=== PATIENT | female | born 1990 | race Caucasian/White ===

== ENCOUNTER 2020-02-22 11:07 | Outpatient (REF) | payer BC, SELFPAY | END 2020-02-22 11:08 | disposition home or self-care (01) | LOC: HO.HMGCLDS 11:07 | PROVIDERS: Visit Provider Internal Medicine | DX: Z20.828 Contact with and (suspected) exposure to other viral communicable diseases (principal) | CPT/HCPCS: C9803; U0003 ==

== ENCOUNTER 2021-07-21 18:37 | Emergency (ER) | payer OTHER, SELFPAY ==
--- NOTE | ~2021-07-21 | CT_ITS ---
EXAMINATION: CT ANGIOGRAM NECK CLINICAL INFORMATION: Neck pain. Severely twisted neck twisted in brake lathe machine. COMPARISON: CT cervical spine from 04/20/2014. TECHNIQUE: Initial noncontrast fence machine operator imaging of the neck was performed. Test bolus sequences followed by intravenous administration 70 mL of Omnipaque 350. Helical imaging was performed in the axial plane from the aortic arch to the skull base. The data was processed at the echocardiography radiology technologist's workstation for generation of MIP sequences. Angled MIPs and volume rendered reformatted images were also generated at an offline 3D workstation. Stenoses are assessed in accordance with NASCET criteria unless otherwise indicated. This CT examination was performed using dose optimization techniques as appropriate, variously including the following: *Automated exposure control. *Adjustment of mA and/or kV according to patient size (this includes techniques or standardized protocols for targeted exams where dose is matched to indication/reason for exam; i.e. extremities or head). *Use of iterative reconstruction technique. DLP: 584 mGy-cm FINDINGS: CT Neck: The thyroid gland and remaining cervical soft tissues are within normal limits. Mild mucosal thickening of the paranasal sinuses. Mild reversal the normal cervical lordosis centered on C6-C7. Otherwise, normal anatomic alignment. Moderate degenerative disc disease at C6-C7. Mild degenerative disc disease at C5-C6. Chronic mild expansion of the interspinous space at C6-C7 with partial calcification of the ligamentum flavum complex (similar to 2015). No demonstrated acute fracture or traumatic subluxation of the cervical spine. CT Upper Chest: The visualized lung apices and upper mediastinum are within normal limits. Neck CTA: Moderately motion degraded exam. Aortic Arch: Normal contour and caliber. Classic 3 vessel branching pattern of the aortic arch. Great Vessel Origins: No significant stenosis of the branch origins. Common Carotid Arteries: Normal opacification without focal stenosis or occlusion. Cervical Internal Carotid Arteries: Motion artifact blurs evaluation of the carotid bulbs. Otherwise, there is normal opacification without focal stenosis or occlusion. Cervical Right Vertebral Artery: Co-dominant. Normal opacification without focal stenosis or occlusion. Cervical Left Vertebral Artery: Co-dominant. Normal opacification without focal stenosis or occlusion. CT/CT angio neck IMPRESSION: 1. CTA of the neck without demonstrated blunt traumatic vascular injury. 2. No evidence of acute fracture or traumatic subluxation of the cervical spine. Degenerative spondyloarthropathy appears similar to exam from 2015.
[2021-07-21 19:17] VITALS: BMI 24.3
[2021-07-21 19:27] VITALS: BP 112/73; PULSE 74; RESP 17; TEMP 36.3; O2SAT 100
--- NOTE | 2021-07-21 19:31 | ED_ITS ---
HPI - Neck Pain/Injury General Chief Complaint: Neck Pain/Injury Stated Complaint: neck injury at work Time Seen by Provider: 07/21/21 19:29 Source: patient Mode of arrival: ambulatory Limitations: no limitations History of Present Illness HPI Narrative: at work today 3pm tona got pulled into brake lathe machine where she got pulled under then almost around it and her neck was whipped around and she felt a crack. She went to urgent care and waited 3 hours to be told to come to ED. She has no issues with her UE. She notes pain to scalp on left side where hair was pulled and L sided neck pain MD complaint: neck pain and neck injury Onset (ago): hour(s) (3pm today ) Place: work Radiation: left lateral Severity: moderate Quality: spasming and throbbing Duration: constant Relieving factors: immobilization Exacerbating factors: movement of neck Context: other (twisted by tona - pulled into brake lathe machine) Associated symptoms: headache (scalp at site where hair was pulled) Treatments prior to arrival: none Related Data Home Medications Medication Instructions Recorded Confirmed etonogestrel 68 mg subdermal SUBDERMAL 03/18/20 09/27/20 implant (Nexplanon) albuterol sulfate 90 mcg/actuation 2 puff INHALATION Q6H PRN 07/08/20 09/27/20 aerosol inhaler (ProAir HFA) loratadine 10 mg tablet (Allergy 10 mg PO DAILY 07/08/20 09/27/20 Relief (loratadine)) Previous Rx's Medication Instructions Recorded cyclobenzaprine 10 mg tablet 10 mg PO BEDTIME PRN 10 Days #20 03/18/20 tab ibuprofen 800 mg tablet 800 mg PO Q8H PRN 10 Days #30 tab 05/01/20 terbinafine HCl 250 mg tablet 250 mg PO DAILY #90 tab 09/27/20 Allergies Allergy/AdvReac Type Severity Reaction Status Date / Time tramadol [TRAMADOL] Allergy Unknown SICK Verified 07/21/21 19:21 Review of Systems Review of Systems: Constitutional : No Fever, No Chills ENT/Mouth : No Ear Pain, No Hoarseness, No sore throat Eyes: No Eye Pain, No Swelling, No Redness, No Foreign Body Cardiovascular : No Chest Pain, No SOB Respiratory : No Cough, No Dyspnea Gastrointestinal : No Nausea, No Vomiting, No Diarrhea, No abdominal Pain Genitourinary : No Dysuria, No Hematuria Musculoskeletal : no joint pain, No Myalgias, No Joint Swelling, pos neck pain Skin : No Skin lacerations, No rash Neuro : No Weakness, No Numbness, No Loss of Consciousness, No Dizziness, No Headache Psych : No Anxiety/Panic, No Depression Heme/Lymph: no easy bruising, no Lymphadenopathy Endocrine : No Polyuria, No Polydipsia All other systems reviewed and are negative [facility] Past Medical History Attestation statement: The following information was validated with the patient. Medical History Back pain Fall (on) (from) other stairs and steps, initial encounter Onychomycosis Surgical History No pertinent past surgical history Family History Family History (Updated 02/22/20 @ 13:08 by Marylu Frank Amber) Father Hypertension Mother Melanoma Maternal Aunt Melanoma Paternal Aunt Breast cancer Social History Social History Housing: Apartment Alcohol intake: current Alcohol intake frequency: a few times a week Patient Tobacco Use Status: Never used Tobacco Second Hand Smoke Exposure: Yes Patient : No service: No Current occupational status: employed Physical Exam Vital Signs: Vital Signs: Last Vital Signs Temp 97.4 F 07/21/21 19:27 Pulse 74 07/21/21 19:27 Resp 17 07/21/21 19:27 BP 112/73 07/21/21 19:27 Pulse Ox 100 07/21/21 19:27 BMI result Body Mass Index 24.3 Appearance: Alert. Oriented X3. No acute distress. Eyes: Pupils equal, round and reactive to light. ENT: Pharynx normal. Neck: in soft collar. no midline ttp no hematoma seen no bruit heard ttp along left lateral mass CVS: Normal heart rate and rhythm. Pulses normal. Respiratory: No respiratory distress. Breath sounds normal. Abdomen: Soft and non-tender. Skin: Skin warm and dry. Normal skin color. Normal skin turgor. Extremities: No lower extremity edema. Neuro: Oriented X 3. No motor deficit. No sensory deficit. bilateral UE NV intact 5/5 strength SILT throughout Course Course Course Narrative: signed out to Dr. Herrera pending labs and imaging. MDM - Neck Pain/Injury MDM Narrative Medical decision making narrative: 31 yo female no sig PMH here with c/o twisting injury of neck with pain after ponytail being pulled into brake lathe machine at work. At this time given the mechanism and twisting injury will obtain CTA of neck to evaluate the bones as well as angio to r/o dissection. PO valium for spasm. She is UE NV intact. Dispo per results and findings. Lab Data Result diagrams: 07/21/21 20:03 07/21/21 20:03 Labs: Lab Results 07/21/21 Range/Units 20:03 WBC 7.4 (4.8-10.8) X10*3/uL RBC 4.44 (4.20-5.50) X10*6/uL Hgb 13.9 (12.0-16.0) g/dl Hct 40.0 (37.0-47.0) % MCV 90.1 (80.0-98.0) fL MCH 31.3 (27.0-33.0) pg MCHC 34.8 (31.0-35.0) g/dl RDW 12.2 (11.0-16.0) % Plt Count 231 (160-400) X10*3/uL MPV 9.6 (9.4-12.3) fL Immature Gran % (Auto) 0.3 (0.0-0.4) % Neut % (Auto) 64.4 (45-73) % Lymph % (Auto) 27.0 (20-40) % [place] % (Auto) 7.2 (2-11) % Eos % (Auto) 0.8 (0-4) % Baso % (Auto) 0.3 (0-2) % Lymph # (Auto) 2.0 (1.2-4.9) X10*3/uL [place] # (Auto) 0.5 (0.1-1.2) X10*3/uL Eos # (Auto) 0.1 (0.0-0.4) X10*3/uL Baso # (Auto) 0.0 (0.0-0.2) X10*3/uL Abs Immat Gran (auto) 0.02 (0.00-0.03) X10*3/uL Absolute Neuts (auto) 4.8 (2.0-8.3) x10*3/uL Absolute Nucleated RBC 0.000 (0.0-0.012) X10*3/uL Nucleated RBC % (auto) 0.0 (0.0-0.2) /100WBC Discharge Plan Discharge Clinical Impression: Whiplash injury to neck Qualifiers: Encounter type: initial encounter Qualified Code(s): S13.4XXA - Sprain of ligaments of cervical spine, initial encounter Patient Disposition: Still a Patient Prescriptions: No Action Nexplanon 68 mg implant subdermal 0RF cyclobenzaprine 10 mg tablet 10 mg PO BEDTIME PRN (Reason: muscle spasm) 10 Days Qty: 20 0RF ibuprofen 800 mg tablet 800 mg PO Q8H PRN (Reason: pain) 10 Days Qty: 30 0RF terbinafine HCl 250 mg tablet 250 mg PO DAILY Qty: 90 1RF loratadine [Allergy Relief (loratadine)] 10 mg tablet 10 mg PO DAILY 0RF albuterol sulfate [ProAir HFA] 90 mcg/actuation HFA aerosol inhaler 2 puff inhalation Q6H PRN0RF
[2021-07-21] MEDS: diazePAM 2 MG TABLET 5 MG PO (19:53)
[2021-07-21 20:08] LABS: MANUAL DIFF FLAG NO
[2021-07-21 20:10] LABS: Basophils Percent Auto 0.3 % (0-2); Eosinophils Absolute Auto 0.1 X10*3/uL (0.0-0.4); Eosinophils Percent Auto 0.8 % (0-4); Hemoglobin 13.9 g/dl (12.0-16.0); Imm Gran Abs Auto 0.02 X10*3/uL (0.00-0.03); Imm Gran Pct Auto 0.3 % (0.0-0.4); Mean Corpuscular HGB Conc 34.8 g/dl (31.0-35.0); Mean Corpuscular Hemoglobin 31.3 pg (27.0-33.0); Mean Corpuscular Volume 90.1 fL (80.0-98.0); Mean Platelet Volume 9.6 fL (9.4-12.3); Monocytes Absolute Auto 0.5 X10*3/uL (0.1-1.2); Monocytes Percent Auto 7.2 % (2-11); Neutrophils Absolute Auto 4.8 x10*3/uL (2.0-8.3); Neutrophils Percent Auto 64.4 % (45-73); Platelet Count 231 X10*3/uL (160-400); Red Blood Count 4.44 X10*6/uL (4.20-5.50); Red Cell Distribution Width 12.2 % (11.0-16.0); White Blood Count 7.4 X10*3/uL (4.8-10.8)
[2021-07-21 20:16] LABS: Prothrombin Time 11.6 SEC (9.9-13.0)
[2021-07-21 20:24] LABS: Anion Gap 10 (12-20); Blood Urea Nitrogen 13 mg/dL (9-16); Calcium 9.4 mg/dL (8.4-10.2); Carbon Dioxide 27 mmol/L (22-29); Chloride 104 mmol/L (96-108); Creatinine Clr Calc Pharmacy 102.4; Estimated Glomerular Filt Rate > 60; Glucose Random 115 mg/dL (60-115); Potassium 3.4 mmol/L (3.3-5.1); Sodium 138 mmol/L (135-145)
[2021-07-21 20:32] LABS: HCG Quantitative < 2 mIU/mL
[2021-07-21] MEDS: iohexoL 350 MG/ML 100 ML INFUS..BTL IV (22:10)
[2021-07-21] MEDS: 0.9 % Sodium Chloride 1,000 ML 999 ML IV (22:26)
[2021-07-21 22:27] VITALS: BP 98/60; PULSE 62; RESP 18; O2SAT 98
[2021-07-21 23:22] VITALS: BP 102/66; PULSE 57; RESP 16; TEMP 36.6; O2SAT 98
[2021-07-21] MEDS: Lidocaine 4 % Patch ADH..PATCH 1 PATCH TRANSDERMA (23:40)
[2021-07-21] MEDS: Ketorolac Tromethamine 15 MG/ML VIAL IM (23:41)
[2021-07-21] MEDS: Acetaminophen 325 MG TABLET 975 MG PO (23:42)
== END 2021-07-21 23:57 | disposition home or self-care (01) ==
PROVIDERS: Emergency Medicine; Emergency Provider Student in an Organized Health Care Education/Training Program; PCP Internal Medicine
DX: S13.4XXA Sprain of ligaments of cervical spine, initial encounter (principal); M54.2 Cervicalgia; X58.XXXA Exposure to other specified factors, initial encounter; Y93.9 Activity, unspecified; Y92.9 Unspecified place or not applicable; Y99.0 Civilian activity done for income or pay; Z79.899 Other long term (current) drug therapy
CPT/HCPCS: 36415; 70498; 80048; 84702; 85025; 85610; 96360; 96372; 99284; J1885; Q9967

== ENCOUNTER 2024-04-06 13:53 | Outpatient (AMB) | payer OTHER, SELFPAY ==
--- NOTE | 2024-04-06 13:54 | A.OFFPC_ITS ---
Vital Signs 04/06/24 13:56 Height 5 ft 6.54 in Weight 176 lb 8 oz BMI 28.0 BP 108/62 Blood Pressure Location Lt brachial Position Sitting Pulse 76 Pulse Source Pulse Oximeter Pulse Oximetry (%) 98 Oxygen Delivery Method Room Air Intake Visit Reasons: establish care Intake Note: pt needs refills Assembly Manager Required: No Accompanied by: Self / Same As Patient Allergies tramadol [TRAMADOL] Allergy (Unknown, Verified 04/06/24 13:55) SICK Medication List - Last Reconciled 04/06/24 by Jennifer Gill MD albuterol sulfate 90 mcg/actuation (ProAir HFA) 2 puffs inhalation Q6H PRN etonogestrel (Nexplanon) subdermal ibuprofen 800 mg PO Q8H PRN 10 days terbinafine HCl 250 mg PO DAILY Tobacco use date assessed: 04/06/24 Dental Screening Dental Screen Date: 04/06/24 Did you have a dental visit in the last 12 months?: Yes Did you have a dental problem in the last 6 months where you did not have access to dental care?: No Was dental information given to patient?: Patient has dentist HPI establish care HPI Details The patient is a 34-year-old female presenting with a history of cervical neck injury resulting from an accident in 2021, where her neck was pulled by machinery. She continues to experience occasional pain and limited motion in her neck but reports that the condition has shown some improvement over time. Previous imaging studies, such as CT scans, indicated that osseous structures were normal. Blood work conducted prior to this visit indicated mild hypokalemia and mild hyperglycemia, though the latter was deemed insignificant as the testing occurred in the afternoon. In past medical history, she experienced adverse reactions to Tramadol resulting in cessation of the medication. Currently, there is no new pharmaceutical intolerance. The patient experiences occasional dyspnea primarily during physical exertion for which she intermittently uses an inhaler. She has an ongoing issue with onychomycosis noted particularly in the foot and nail regions. The patient reports that the condition has not fully resolved and persists with reduced bonita rity. Previously, a medication was prescribed for this condition, which the patient partially used. A request for a new prescription was made due to medication loss during a move. She reported social alcohol consumption on weekends, typically consuming a few beers or glasses of wine during social gatherings, equating to approximately four occasions per month. The patient clarified that she does not use tobacco or recreational drugs. Family history is significant for breast cancer in an aunt and melanoma concerning her mother and another aunt. The patient receives ongoing periodic health maintenance including COVID-19 vaccination but has not recently received an influenza vaccine. She maintains hydration and activity levels but noted recent lapses in dietary health. [facility] Medical History (Updated 04/06/24 @ 14:27 by Jennifer Gill MD) Fall (on) (from) other stairs and steps, initial encounter Skin infection COVID-19 virus infection Back pain Onychomycosis Surgical History No pertinent past surgical history Family History Father Hypertension Mother Melanoma Maternal Aunt Melanoma Paternal Aunt Breast cancer Social History (Updated 04/06/24 @ 14:29 by Jennifer Gill MD) Housing: Apartment Alcohol intake: current Alcohol intake frequency: a few times a week Comment: once a week 4 beers Patient Tobacco Use Status: Never used Tobacco Second Hand Smoke Exposure: Yes service: No Current occupational status: employed Questionnaire PHQ-9 Over the last 2 weeks, how often have you been bothered by any of the following problems? 1. Little interest or pleasure in doing things: several days 2. Feeling down, depressed, or hopeless: not at all 3. Trouble falling or staying asleep, or sleeping too much: several days 4. Feeling tired or having little energy: not at all 5. Poor appetite or overeating: not at all 6. Feeling bad about yourself - or that you are a failure or have let yourself or your family down: not at all 7. Trouble concentrating on things, such as reading the newspaper or watching television: not at all 8. Moving or speaking so slowly that other people could have noticed. Or the opposite - being so fidgety or restless that you have been moving around a lot more than usual: not at all 9. Thoughts that you would be better off or of hurting yourself in some way: not at all Total score: 2 Depression Screening Interpretation: Negative Depression Screening Done: Yes Source: Developed by Drs. Antelmo Clarke, Curtis Givens and colleagues, with an educational jessica from [employer]. Thrive Questionnaire Date Thrive assessed: 04/06/24 I am a: Patient What is your living situation today?: I have a steady place to live Within the past 12 months, did the food you bought not last and you didn't have the money to get more?: Never true Within the past 12 months, did you worry whether your food would run out before you got money to buy more?: Never true Do you have trouble paying for medicines?: No Do you have trouble getting transportation to medical appointments?: No Do you have trouble paying your heating and electricity bill?: No Do you have trouble taking care of your child, family member or friend?: No Do you have trouble with day-to-day activities such as bathing, preparing meals, shopping, managing finances, etc.?: No Are you currently unemployed and looking for a job?: No Are you interested in more education?: No Please select the resources that you would like help with: None Currently or been in a relationship where the following occur: No concerns reported THRIVE Score: 0 AUDIT C Alcohol Use Questionnaire (AUDIT-C) 1. How often do you have a drink containing alcohol?: Never Total Score: 0 RICHARD-7 AMB Questionnaire RICHARD-7 Date RICHARD - 7 assessed: 04/06/24 Feeling nervous, anxious, or on edge: 0 = Not at all Not being able to stop or control worryin = Not at all Worrying too much about different things: 0 = Not at all Trouble relaxin = Not at all Being so restless that it is hard to sit still: 0 = Not at all Becoming easily annoyed or irritable: 0 = Not at all Feeling afraid as if something awful might happen: 0 = Not at all Total RICHARD-7 score (0-4 normal; 5-9 mild; 10-14 moderate; 15-21 severe): 0 Source: Developed by Drs. Antelmo Clarke, Curtis Givens and colleagues, with an educational jessica from [employer]. Physical exam (Primary Care) Vital Signs: Last Vital Signs Pulse 76 04/06/24 13:56 BP 108/62 04/06/24 13:56 Pulse Ox 98 04/06/24 13:56 Oxygen Delivery Method Room Air 04/06/24 13:56 BMI result Body Mass Index 28.0 Tobacco/Smoking Status: Tobacco use Status Tobacco use date assessed 04/06/24 04/06/24 14:05 Patient Tobacco Use Status Never used Tobacco 04/06/24 14:29 PHQ-9: PHQ-9 Score PHQ-9: Total score 2 04/06/24 14:29 Depression Screening Interpretation: Negative Thrive Assessment: Date of Thrive Assessment Date Thrive assessed 04/06/24 04/06/24 14:05 Currently or been in a relationship where the following occur: No concerns reported Coding Level of Care Code New Pt Level 4 (28753) Diagnoses Onychomycosis B35.1 Exercise-induced asthma J45.990 Assessment & Plan Assessment & Plan (1) Onychomycosis: Code(s): B35.1 - Tinea unguium Category: Medical (2) Exercise-induced asthma: Code(s): J45.990 - Exercise induced bronchospasm Category: Medical Plan - Continue management of cervical neck injury sequelae with monitoring for any exacerbation of symptoms. - Monitor serum potassium and glucose levels in routine follow-ups as precautionary measures due to previous findings of mild hypokalemia and hyperglycemia. - Avoid Tramadol due to history of adverse reaction; continue to explore alternative analgesics if needed. - Advise on inhaler use as needed to manage dyspnea associated with physical activity; continue monitoring for frequency and intensity. - Prescribe antifungal therapy for onychomycosis, considering prior partial treatment and ongoing symptoms. - Discuss and reinforce moderation in alcohol consumption in line with health guidelines and patient?s current social habits. - Encourage completion of annual health screenings, addressing vaccinations, and addressing family cancer history for personalized care. - Continue encouragement of a balanced diet and regular physical activity to optimize overall health. Orders: Orders Complete Blood Count Auto Diff 4 Weeks B35.1 - Tinea unguium Thyroid Stimulating Hormone 4 Weeks B35.1 - Tinea unguium Vitamin B12 and Folate 4 Weeks B35.1 - Tinea unguium Vitamin D 25-OH Total 4 Weeks B35.1 - Tinea unguium Comprehensive Met. Panel 4 Weeks B35.1 - Tinea unguium Free T4 (Free Thyroxine) 4 Weeks B35.1 - Tinea unguium Lipid Panel 4 Weeks B35.1 - Tinea unguium, E78.00 - Pure hypercholesterolemia, unspecified Medications: Refilled terbinafine HCl 250 mg PO DAILY 90 tabs 1RF B35.1 - Tinea unguium
[2024-04-06 13:56] VITALS: BP 108/62; PULSE 76; O2SAT 98; BMI 28.0
== END 2024-04-06 14:37 | disposition home or self-care (01) ==
PROVIDERS: PCP Internal Medicine; Visit Provider Internal Medicine
DX: B35.1 Tinea unguium (principal); J45.990 Exercise induced bronchospasm

== ENCOUNTER → 2024-04-06 13:53 | Outpatient (BNVA) | payer OTHER, SELFPAY | PROVIDERS: PCP Internal Medicine; Visit Provider Internal Medicine ==

== ENCOUNTER 2024-06-03 10:39 | Outpatient (REF) | payer OTHER, SELFPAY ==
[2024-06-03 10:51] LABS: MANUAL DIFF FLAG NO
[2024-06-03 11:11] LABS: Basophils Percent Auto 0.4 % (0-2); Eosinophils Absolute Auto 0.1 X10*3/uL (0.0-0.4); Eosinophils Percent Auto 1.1 % (0-4); Hematocrit 42.3 % (37.0-47.0); Hemoglobin 14.4 g/dl (12.0-16.0); Imm Gran Abs Auto 0.02 X10*3/uL (0.00-0.03); Imm Gran Pct Auto 0.4 % (0.0-0.4); Lymphocytes Absolute Auto 1.4 X10*3/uL (1.2-4.9); Lymphocytes Percent Auto 25.4 % (20-40); Mean Corpuscular Hemoglobin 30.9 pg (27.0-33.0); Mean Corpuscular Volume 90.8 fL (80.0-98.0); Mean Platelet Volume 9.2 fL (9.4-12.3); Monocytes Absolute Auto 0.4 X10*3/uL (0.1-1.2); Monocytes Percent Auto 6.9 % (2-11); Neutrophils Absolute Auto 3.6 x10*3/uL (2.0-8.3); Neutrophils Percent Auto 65.8 % (45-73); Platelet Count 237 X10*3/uL (160-400); Red Blood Count 4.66 X10*6/uL (4.20-5.50); Red Cell Distribution Width 12.2 % (11.0-16.0); White Blood Count 5.5 X10*3/uL (4.8-10.8)
[2024-06-03 12:06] LABS: Alanine Aminotransferase 15 U/L (0-31); Albumin Level 4.3 g/dL (3.5-5.0); Alkaline Phosphatase 74 U/L (39-117); Anion Gap 11 (12-20); Aspartate Amino Transferase 15 U/L (5-31); Bilirubin Total 0.3 mg/dL (0.0-1.0); Blood Urea Nitrogen 18 mg/dL (9-16); Carbon Dioxide 26 mmol/L (22-29); Chloride 107 mmol/L (96-108); Cholesterol 158 mg/dL (<200); Estimated Glomerular Filt Rate > 60; Glucose Random 99 mg/dL (60-115); HDL Cholesterol 53 mg/dL (>40); LDL Cholesterol Calculated 86 mg/dL (<100); Potassium 4.5 mmol/L (3.3-5.1); Sodium 139 mmol/L (135-145); Total Protein 7.7 g/dL (6.5-8.0); Triglycerides 97 mg/dL (<150)
[2024-06-03 12:29] LABS: Thyroid Stimulating Hormone 0.66 uIU/mL (0.32-4.0); Vitamin D 25-OH Total 15.6 ng/mL (>30)
[2024-06-03 12:31] LABS: Folate 9.7 ng/mL (> or = 4.0); Vitamin B12 316 pg/mL (200-900)
== END 2024-06-03 10:40 | disposition home or self-care (01) ==
LOC: HO.LAB 10:39
PROVIDERS: PCP Internal Medicine; Visit Provider Internal Medicine
DX: B35.1 Tinea unguium (principal); E78.00 Pure hypercholesterolemia, unspecified; Z13.228 Encounter for screening for other metabolic disorders
CPT/HCPCS: 36415; 80053; 80061; 82306; 82607; 82746; 84439; 84443; 85025

== ENCOUNTER 2024-06-05 16:01 | Outpatient (AMB) | payer OTHER, SELFPAY ==
[2024-06-05 16:16] VITALS: BP 98/64; PULSE 72; TEMP 36.2; O2SAT 98; BMI 28.5
--- NOTE | 2024-06-05 16:16 | A.OFFPC_ITS ---
Vital Signs 06/05/24 16:16 Height 5 ft 6.54 in Weight 179 lb 6 oz BMI 28.5 BP 98/64 Blood Pressure Location Lt brachial Position Sitting Pulse 72 Pulse Source Pulse Oximeter Temp 97.1 F Temp Source Temporal Artery Scan Pulse Oximetry (%) 98 Oxygen Delivery Method Room Air Intake Visit Reasons: Annual Exam Intake Note: Patient is here today for a physical. Invisible Braces Orthodontist Required: No Accompanied by: Self / Same As Patient Allergies tramadol [TRAMADOL] Allergy (Unknown, Verified 06/05/24 16:17) SICK Medication List - Last Reconciled 06/05/24 by Jennifer Gill MD albuterol sulfate 90 mcg/actuation (ProAir HFA) 2 puffs inhalation Q6H PRN etonogestrel (Nexplanon) subdermal ibuprofen 800 mg PO Q8H PRN 10 days terbinafine HCl 250 mg PO DAILY Tobacco use date assessed: 04/06/24 Dental Screening Dental Screen Date: 04/06/24 [facility] Medical History (Updated 06/05/24 @ 16:31 by Jennifer Gill MD) Fall (on) (from) other stairs and steps, initial encounter Skin infection COVID-19 virus infection Back pain Onychomycosis Surgical History No pertinent past surgical history Family History (Updated 06/05/24 @ 16:32 by Jennifer Gill MD) Father Hypertension Mother Melanoma Maternal Aunt Melanoma Paternal Aunt Breast cancer Paternal Grandmother Breast cancer Social History Housing: Apartment Alcohol intake: current Alcohol intake frequency: a few times a week Comment: once a week 4 beers Patient Tobacco Use Status: Never used Tobacco Second Hand Smoke Exposure: Yes service: No Current occupational status: employed Cognitive needs: No Hearing needs: No Vision needs: No Questionnaire PHQ-9 Over the last 2 weeks, how often have you been bothered by any of the following problems? 1. Little interest or pleasure in doing things: several days 2. Feeling down, depressed, or hopeless: not at all 3. Trouble falling or staying asleep, or sleeping too much: several days 4. Feeling tired or having little energy: not at all 5. Poor appetite or overeating: not at all 6. Feeling bad about yourself - or that you are a failure or have let yourself or your family down: not at all 7. Trouble concentrating on things, such as reading the newspaper or watching television: not at all 8. Moving or speaking so slowly that other people could have noticed. Or the opposite - being so fidgety or restless that you have been moving around a lot more than usual: not at all 9. Thoughts that you would be better off or of hurting yourself in some way: not at all Total score: 2 Depression Screening Interpretation: Negative Depression Screening Done: Yes 33820 - PHQ-9 Billing: Yes Source: Developed by Drs. Antelmo Clarke, Hue Gonzalez, Curtis Grande and colleagues, with an educational jessica from [employer]. Thrive Questionnaire Date Thrive assessed: 06/05/24 I am a: Patient What is your living situation today?: I have a steady place to live Within the past 12 months, did the food you bought not last and you didn't have the money to get more?: Never true Within the past 12 months, did you worry whether your food would run out before you got money to buy more?: Never true Do you have trouble paying for medicines?: No Do you have trouble getting transportation to medical appointments?: No Do you have trouble paying your heating and electricity bill?: No Do you have trouble taking care of your child, family member or friend?: No Do you have trouble with day-to-day activities such as bathing, preparing meals, shopping, managing finances, etc.?: No Are you currently unemployed and looking for a job?: No Are you interested in more education?: No Please select the resources that you would like help with: None Currently or been in a relationship where the following occur: No concerns reported THRIVE Score: 0 AUDIT C Alcohol Use Questionnaire (AUDIT-C) 1. How often do you have a drink containing alcohol?: Never 3. How often do you have six or more drinks on one occasion?: Never Total Score: 0 RICHARD-7 AMB Questionnaire RICHARD-7 Date RICHARD - 7 assessed: 06/05/24 Feeling nervous, anxious, or on edge: 0 = Not at all Not being able to stop or control worryin = Not at all Worrying too much about different things: 0 = Not at all Trouble relaxin = Not at all Being so restless that it is hard to sit still: 0 = Not at all Becoming easily annoyed or irritable: 0 = Not at all Feeling afraid as if something awful might happen: 0 = Not at all Total RICHARD-7 score (0-4 normal; 5-9 mild; 10-14 moderate; 15-21 severe): 0 Source: Developed by Drs. Antelmo Clarke, Hue Gonzalez, Curtis Grande and colleagues, with an educational jessiac from [employer]. RICHARD-7 Assessment Billing RICHARD-7 Assessment Tool: RICHARD-7 Assessment 95804 Review of Systems Const Denies poor appetite and Denies weakness Eyes Denies no additional complaints ENT Reports Normal hearing present, Denies dizziness, Denies nasal congestion, Denies tinnitus and Denies sore throat Card Denies chest pain, Denies syncope, Denies rapid heart rate and Denies dyspnea Resp Denies cough and Denies dyspnea GI Denies change in stool character, Reports constipation, Denies diarrhea, Denies nausea and Denies vomiting Denies urinary frequency, Denies difficulty voiding and Denies dysuria Neuro Reports Normal hearing present, Denies confusion, Denies dizziness, Denies syncope and Denies weakness Psych Denies confusion Physical exam (Primary Care) Vital Signs: Last Vital Signs Temp 97.1 F 06/05/24 16:16 Pulse 72 06/05/24 16:16 BP 98/64 06/05/24 16:16 Pulse Ox 98 06/05/24 16:16 Oxygen Delivery Method Room Air 06/05/24 16:16 BMI result Body Mass Index 28.5 Tobacco/Smoking Status: Tobacco use Status Tobacco use date assessed 04/06/24 06/05/24 16:18 Patient Tobacco Use Status Never used Tobacco 06/05/24 16:18 PHQ-9: PHQ-9 Score PHQ-9: Total score 2 06/05/24 16:25 Depression Screening Interpretation: Negative Thrive Assessment: Date of Thrive Assessment Date Thrive assessed 06/05/24 06/05/24 16:18 Currently or been in a relationship where the following occur: No concerns reported Const General: No confusion Orientation/consciousness: No confusion HENMT Head: Yes normocephalic Ears: external ears normal and TM's normal bilaterally Face and sinus: Yes normal facial exam Mouth: moist mucous membranes Throat: Yes tonsils normal Eyes Conjunctivae: conjunctivae normal Pupils: Equal, round and reactive pupils present and Pupil accommodation reflex normal Direct Ophthalmoscopy: normal light reflex Neck Neck: No lymphadenopathy Thyroid: Thyroid normal Chest Chest palpation & inspection: normal inspection of the chest Resp Effort & Inspection: normal respiratory effort and no audible wheezes Auscultation: clear to auscultation bilaterally, no crackles, no wheezes and lung sounds not diminished Cardio Rate: regular rate Rhythm: regular rhythm Peripheral pulses: radial pulses present and dorsalis pedis present GI Palpation (GI): no masses Auscultation: normal bowel sounds and normoactive bowel sounds Rectal Exam - Female: deferred Skin General skin exam: no rashes or lesions noted Rashes: no rashes Neuro General: No confusion Cranial nerves: Yes Equal, round and reactive pupils present and Yes Normal hearing present Cognition (Neuro): normal cognition Gait exam (Neuro): Normal gait present Motor exam (neuro): 5/5 motor strength present throughout Deep tendon reflexes (DTR's): Right brachioradialis reflex intensity grade: 2+, Left brachioradialis reflex intensity grade: 2+, Right patellar reflex intensity grade: 2+ and Left patellar reflex intensity grade: 2+ Extrem General: No edema Office Procedures Flu Questionnaire Does the patient have a severe egg allergy?: No Immunizations Fluarix Triv [id number] (PF) 45 mcg (15 mcg x 3)/0.5 mL IM syringe Performing Provider: Jennifer Gill MD [facility] Documented (not given) by: NICKO Zheng on 06/05/24 16:24 Reason Not Given: Patient Refused Coding Level of Care Code Est Pt Prev Care 18-39y(24762) Diagnoses Annual physical exam Z00.00 Exercise-induced asthma J45.990 Vitamin D deficiency E55.9 Migraine G43.909 Additional Codes RICHARD-7 Assessment Billing - RICHARD-7 Assessment Tool: RICHARD-7 Assessment 59740 ([id number]) PHQ-9 - 18797 - PHQ-9 Billing: Yes ([id number]) Assessment & Plan Assessment & Plan (1) Annual physical exam: Code(s): Z00.00 - Encounter for general adult medical examination without abnormal findings Category: Medical Plan: Patient is advised to eat healthy, keep well hydrated, keep active and have adequate sleep. (2) Exercise-induced asthma: Code(s): J45.990 - Exercise induced bronchospasm Category: Medical Plan: Continue with albuterol inhaler as needed (3) Vitamin D deficiency: Code(s): E55.9 - Vitamin D deficiency, unspecified Category: Medical Plan: Vitamin-D 1000 units to 2000 units once a day (4) Migraine: Code(s): G43.909 - Migraine, unspecified, not intractable, without status migrainosus Category: Medical Plan History of Present Illness The patient is a 34-year-old female presenting for a physical exam and management of migraines. She reports frequent and severe migraine headaches that negatively impact her daily life, causing significant symptoms such as nausea and vomiting. Management through [id number] medications like ibuprofen has proven inadequate. The patient also has a history of exercise-induced asthma, managed with an albuterol inhaler, yet reports no recent symptoms of asthma. Her low serum vitamin D was noted during a previous visit, and supplementation was advised to manage this deficiency. Health Maintenance - Vitamin D supplementation recommended: 1000 to 2000 units daily - Advised on lifestyle changes such as reducing alcohol intake to minimize health risks - Discussed maintaining hydration and a healthy diet with low fast food intake Social History - Consumes alcohol occasionally, typically three to four drinks on weekends - No history of tobacco use or recreational drug use - Expresses efforts to maintain a healthy diet and avoid fast food Review of Systems - Neurological: Reports migraines with nausea and vomiting. - Respiratory: Denies shortness of breath, chest pain, or waking up short of breath. - Gastrointestinal: Denies dysphagia, abdominal pain, or irregular bowel movements. - Genitourinary: Denies dysuria or hematuria. - Sleep: Reports good sleep habits and overall hydration. Physical Exam General: Cooperative, overweight, comfortable, no acute distress and well developed Orientation: Patient oriented x3 Limitations: No limitations Head: Normal to inspection Ears: Hearing grossly normal bilaterally Nose: Normal external nose present Face and sinus: Normal facial exam Eyes: Appearance normal, both eyes and all related structures Neck: Normal visual inspection and Yes full ROM Respiratory: Normal respiratory effort and able to speak in complete sentences. Clear to auscultation bilaterally Cardiovascular: Regular rate and rhythm. Normal S1 and S2 GI: Normal to inspection. Soft to palpation and nontender Skin: No rashes or lesions noted Neuro: Patient oriented x3 Extremities: Normal to inspection Results - Labs: June 2024 lab results indicate vitamin D deficiency (15.6 ng/mL), with normal blood count, platelets, white blood cells, renal function, blood sugar, liver function tests, cholesterol, and thyroid levels. Plan For the management of migraine headaches, I prescribed Imitrex sumatriptan) for use at the onset of headache episodes. We discussed the continuation of vitamin D supplementation due to her deficiency and emphasized the importance of lifestyle modifications to manage her overall health, including dietary changes and moderated alcohol consumption. Management of exercise-induced asthma with her current albuterol inhaler was reinforced, and no adjustment was deemed necessary at this time. Patient was informed and verbally consented to the use of an ambient scribe for clinic note documentation during this visit. Discussion Notes During our discussion, I explained the use of Imitrex (sumatriptan) for her migraine management, noting its role in aborting headaches if taken at the onset of symptoms. We reviewed the risks and benefits associated with this treatment and emphasized the need to monitor its efficacy closely. We reiterated the importance of maintaining adequate vitamin D levels through supplementation. The discussion also involved suggestions for dietary and lifestyle changes to improve her general health and mitigate migraine triggers. We concluded that follow-ups would be required to assess her response to new medications. Patient Instructions - Start Imitrex (sumatriptan) at the onset of migraine symptoms. - Continue vitamin D supplementation: 1000 to 2000 units once daily. - Maintain adequate hydration and a healthy diet; limit alcohol intake. - Utilize the albuterol inhaler as needed for asthma symptoms. - Report any significant changes in symptoms or side effects from medications. - Seek medical attention if migraine symptoms worsen or do not improve with treatment. Orders: Orders Influenza [id number] Immunization Today Z23 - Encounter for immunization Medications: New sumatriptan succinate (Imitrex) 50 mg PO Q2-4H PRN 14 tabs 3RF migraine headache G43.909 - Migraine, unspecified, not intractable, without status migrainosus
== END 2024-06-05 16:47 | disposition home or self-care (01) ==
PROVIDERS: PCP Internal Medicine; Visit Provider Internal Medicine
DX: Z00.00 Encounter for general adult medical examination without abnormal findings (principal); J45.990 Exercise induced bronchospasm; E55.9 Vitamin D deficiency, unspecified; G43.909 Migraine, unspecified, not intractable, without status migrainosus; Z23 Encounter for immunization

== ENCOUNTER → 2024-06-05 16:01 | Outpatient (BNVA) | payer OTHER, SELFPAY | PROVIDERS: PCP Internal Medicine; Visit Provider Internal Medicine | DX: Z00.00 Encounter for general adult medical examination without abnormal findings (principal); J45.990 Exercise induced bronchospasm; E55.9 Vitamin D deficiency, unspecified; G43.909 Migraine, unspecified, not intractable, without status migrainosus; Z28.21 Immunization not carried out because of patient refusal | CPT/HCPCS: 90471; 96127 ==

== ENCOUNTER 2024-12-27 10:43 | Outpatient (REF) | payer OTHER, SELFPAY ==
--- NOTE | ~2024-12-27 | XR_ITS ---
EXAMINATION: XR FOOT, RIGHT CLINICAL INFORMATION: S99.921A - Unspecified injury of right foot, initial encounter COMPARISON: October 25, 2012 TECHNIQUE: AP, lateral, and oblique views of the right foot. FINDINGS: The bones and soft tissues are normal. No fracture. Alignment is anatomic. Joint spaces are maintained. Minute calcaneal enthesophytes are present. XR/XR foot RT 2V IMPRESSION: Unremarkable right foot. Minute calcaneal spurs of uncertain significance. Electronically signed by: Zion Pennington MD 12/27/2024 12:44 PM EDT
== END 2024-12-27 10:44 | disposition home or self-care (01) ==
LOC: HO.HMGCLDS 10:43
PROVIDERS: PCP Internal Medicine; Visit Provider Internal Medicine
DX: S99.921A Unspecified injury of right foot, initial encounter (principal); R26.2 Difficulty in walking, not elsewhere classified; W19.XXXA Unspecified fall, initial encounter
CPT/HCPCS: 73620

== ENCOUNTER 2024-12-27 10:43 | Outpatient (AMB) | payer OTHER, SELFPAY ==
[2024-12-27 10:49] VITALS: BP 102/78; PULSE 75; TEMP 36.9; O2SAT 99; BMI 27.7
--- NOTE | 2024-12-27 10:49 | AM.OFFWIN_ITS ---
Intake Vital Signs 12/27/24 10:49 Height 5 ft 6.5 in Weight 174 lb BMI 27.7 BP 102/78 Blood Pressure Location Lt brachial Position Sitting Pulse 75 Pulse Source Pulse Oximeter Temp 98.4 F Temp Source Oral Pulse Oximetry (%) 99 Oxygen Delivery Method Room Air Intake Visit Reasons: EP fell and hurt right foot 2 weeks ago Intake Note: pt presents with right foot pain at base of toes, right lateral mid-foot and near ankle- after a fall 2 weeks ago Patient Tobacco Use Status: Never used Tobacco Allergies tramadol (TRAMADOL) Adverse Reaction (Mild, Verified 12/27/24 10:53) vomiting Medication List - Last Reconciled 12/27/24 by Ghazala Underwood MD albuterol sulfate 90 mcg/actuation (ProAir HFA) 2 puffs inhalation Q6H PRN etonogestrel (Nexplanon) subdermal ibuprofen 800 mg PO Q8H PRN 10 days Do you need a note to return to daycare/school/sports/work: No HPI EP fell and hurt right foot 2 weeks ago HPI Details History of Present Illness The patient is a 34-year-old female presenting with right foot pain following a fall. Right foot pain: - The patient reports a fall approximate ly two weeks ago, landing on her barefoot, specifically affecting her right foot. - The pain is primarily located at the b ase of the toes but can extend along the toes and occasionally presents along other parts of the foot. - She reports significant pain when wear ing shoes and while walking. - The pain has persisted for two weeks w ithout significant improvement. - The patient has self-managed the pain with ibuprofen and Tylenol daily. - She experienced difficulty moving her toes initially, though this has gradually improved over time, with residual pain during movement. - The initial bruising appeared as a kole e discoloration but has since dissipated. - The pain is exacerbated by pressure fr om the sides and is most pronounced during specific movements. - There is no pain in the ankle, suggest ing localization to the foot. Medications: - Ibuprofen for foot pain (dosage not sp ecified) - Tylenol for foot pain (dosage not spec ified) Diagnostic Results: - An x-ray of the right foot was ordered to evaluate for potential fracture. Problem List - Right foot pain Patient Instructions - Stay off the right foot as much as pos sible. - Keep the foot elevated when possible. - If comfortable, walk as tolerated but avoid overexertion to prevent a ggravation. - Continue taking ibuprofen or Tylenol f or pain relief as needed, with food to avoid stomach irritation. - further management after the x-ray rep ort 14:00: X-ray report showed no fracture Patient was notified Review of Systems - General: No fever no chills - Neurological: No headaches no dizziness - Ear nose throat: No sore throat no hearing difficulty no ear pain - Cardiovascular: No syncope, no chest pain, no palpitations - Gastrointestinal: No nausea vomiting or diarrhea Physical Exam General: No acute distress HEENT: No acute findings Neck: Supple Respiratory system: Able to talk in full sentences, no audible wheeze Gastrointestinal: No pain Extremities: Pain in the right foot, especially at the base of the 4th and 5th toes. Limited movement in toes, no discoloration , Ankle movement is fine., neurovascular intact Skin: Normal turgor, previous bruising on the foot has resolved [facility] Medical History Fall (on) (from) other stairs and steps, initial encounter Skin infection COVID-19 virus infection Back pain Onychomycosis Surgical History No pertinent past surgical history Family History Father Hypertension Mother Melanoma Maternal Aunt Melanoma Paternal Aunt Breast cancer Paternal Grandmother Breast cancer Social History Housing: Apartment Alcohol intake: current Alcohol intake frequency: a few times a week Comment: once a week 4 beers Patient Tobacco Use Status: Never used Tobacco Second Hand Smoke Exposure: Yes service: No Current occupational status: employed Cognitive needs: No Hearing needs: No Vision needs: No Physical Exam Vital Signs: Last Vital Signs Temp 98.4 F 12/27/24 10:49 Pulse 75 12/27/24 10:49 BP 102/78 12/27/24 10:49 Pulse Ox 99 12/27/24 10:49 Oxygen Delivery Method Room Air 12/27/24 10:49 BMI result Body Mass Index 27.7 Assessment & Plan Assessment & Plan (1) Injury of foot, right: Code(s): S99.921A - Unspecified injury of right foot, initial encounter Qualifiers: Encounter type: initial encounter Qualified Code(s): S99.921A - Unspecified injury of right foot, initial encounter (2) Difficulty walking involving foot: Code(s): R26.2 - Difficulty in walking, not elsewhere classified Plan History of Present Illness The patient is a 34-year-old female presenting with right foot pain following a fall. Right foot pain: - The patient reports a fall approximately two weeks ago, landing on her bare foot, specifically affecting her right foot. - The pain is primarily located at the base of the toes but can extend along the toes and occasionally presents along other parts of the foot. - She reports significant pain when wearing shoes and while walking. - The pain has persisted for two weeks without significant improvement. - The patient has self-managed the pain with ibuprofen and Tylenol daily. - She experienced difficulty moving her toes initially, though this has gradually improved over time, with residual pain during movement. - The initial bruising appeared as a blue discoloration but has since dissipated. - The pain is exacerbated by pressure from the sides and is most pronounced during specific movements. - There is no pain in the ankle, suggesting localization to the foot. Medications: - Ibuprofen for foot pain (dosage not specified) - Tylenol for foot pain (dosage not specified) Diagnostic Results: - An x-ray of the right foot was ordered to evaluate for potential fracture. Problem List - Right foot pain Patient Instructions - Stay off the right foot as much as possible. - Keep the foot elevated when possible. - If comfortable, walk as tolerated but avoid overexertion to prevent aggravation. - Continue taking ibuprofen or Tylenol for pain relief as needed, with food to avoid stomach irritation. - further management after the x-ray report 14:00: X-ray report showed no fracture Patient was notified Orders: Orders XR foot RT 2V Today S99.921A - Unspecified injury of right foot, initial encounter Coding Level of Care Code Est Pt Level 4 (13237) Diagnoses Injury of right foot, initial encounter S99.921A Encounter type: initial encounter Difficulty walking involving foot R26.2 Time Spent (min) 30 Comment [id number] with patient, follow up on x-rays, coordination of care, documentation
== END 2024-12-27 11:21 | disposition home or self-care (01) ==
PROVIDERS: PCP Internal Medicine; Visit Provider Internal Medicine
DX: S99.921A Unspecified injury of right foot, initial encounter (principal); R26.2 Difficulty in walking, not elsewhere classified

== ENCOUNTER → 2024-12-27 11:13 | Outpatient (BNV) | payer OTHER, SELFPAY | PROVIDERS: PCP Internal Medicine; Visit Provider Radiology Diagnostic Radiology | DX: M77.31 Calcaneal spur, right foot (principal) | CPT/HCPCS: 73620 ==

== ENCOUNTER 2025-03-13 13:27 | Outpatient (AMB) | payer OTHER, SELFPAY ==
[2025-03-13 13:31] VITALS: BP 96/62; PULSE 107; TEMP 36.6; O2SAT 99; BMI 27.5
--- NOTE | 2025-03-13 13:31 | AM.OFFWIN_ITS ---
Intake Vital Signs 03/13/25 13:31 Height 5 ft 6.5 in Weight 173 lb BMI 27.5 BP 96/62 Blood Pressure Location Rt brachial Position Sitting Pulse 107 H Pulse Source Pulse Oximeter Temp 97.8 F Temp Source Oral Pulse Oximetry (%) 99 Oxygen Delivery Method Room Air Intake Visit Reasons: eP hurt left side of back Intake Note: pt presents with LT lower back pain radiating down left leg, shooting pains going up back with some movements x2 days Patient Tobacco Use Status: Never used Tobacco Allergies tramadol (TRAMADOL) Adverse Reaction (Mild, Verified 03/13/25 13:38) vomiting Do you need a note to return to daycare/school/sports/work: Yes HPI HPI Comments History of Present Illness Details History - The patient is a 35 year old female pr esenting with low back pain. - The back pain started on Wednesday after cleaning, with no specific injury or fall reported at this time. - She has a history of a previous back i njury a few years ago and is unsure if she aggravated it. - The pain is located in the lower back, primarily on the left side but also affecting the right side. - She experiences sharp, shooting pain t hat radiates down her leg with movement, while at rest she feels tightness. - She has tried ibuprofen for the pain w ith no significant relief. - She denies any loss of control of her bladder or bowels. - She denies any history of diabetes or GI bleed. + [facility] Medical History Fall (on) (from) other stairs and steps, initial encounter Skin infection COVID-19 virus infection Back pain Onychomycosis Surgical History No pertinent past surgical history Family History Father Hypertension Mother Melanoma Maternal Aunt Melanoma Paternal Aunt Breast cancer Paternal Grandmother Breast cancer Social History Housing: Apartment Alcohol intake: current Alcohol intake frequency: a few times a week Comment: once a week 4 beers Patient Tobacco Use Status: Never used Tobacco Second Hand Smoke Exposure: Yes service: No Current occupational status: employed Cognitive needs: No Hearing needs: No Vision needs: No Review of Systems Narrative Review of Systems - Musculoskeletal: Reports lower back pain, which is primarily on the left but also on the right. - Neurological: Reports pain radiating down the leg. - Genitourinary: Denies urinary incontinence. - Gastrointestinal: Denies bowel incontinence. All systems reviewed and are unremarkable except as noted in HPI Physical Exam Exam Exam: Physical Exam General: cooperative, healthy appearing and comfortable, patient oriented x3 Head: Yes normal to inspection and Yes normocephalic General nose exam: Normal external nose present Face and sinus: Yes normal facial exam Effort & Inspection: normal respiratory effort and able to speak in complete sentences Back/spine: cervical, thoracic and lumbar spine normal to inspection cervical ROM normal, thoracic ROM normal, lumbar ROM normal no Cervical, thoracic or lumbar spine tenderness TTP on left side lumbar into left buttocks Extremities: moving extremities normally, straight leg test positive at 40 degrees on left, 60 degrees on right Neuro: A&O x3, gait limping Vital Signs: Last Vital Signs Temp 97.8 F 03/13/25 13:31 Pulse 107 H 03/13/25 13:31 BP 96/62 03/13/25 13:31 Pulse Ox 99 03/13/25 13:31 Oxygen Delivery Method Room Air 03/13/25 13:31 BMI result Body Mass Index 27.5 Assessment & Plan Assessment & Plan (1) Acute bilateral low back pain with sciatica: Code(s): M54.40 - Lumbago with sciatica, unspecified side Qualifiers: Sciatica laterality: bilateral sciatica Qualified Code(s): M54.42 - Lumbago with sciatica, left side; M54.41 - Lumbago with sciatica, right side Plan Plan - A prescription for a prednisone taper will be sent to [facility]. The prescribed regimen is 60 mg for 3 days, 40 mg for 2 days, and 20 mg for 4 days. - A muscle relaxer, Flexeril, is prescribed to be taken at night. The patient is advised to start with one tablet and may take up to two, but it may cause tiredness. She was advised not to drive or drink alcohol while taking it. - Patient education was provided regarding medication timing: take the muscle relaxer tonight, and start the prednisone tomorrow morning to avoid insomnia. - The patient may use Aleve for pain relief until the prednisone is started, but she should not take Aleve and prednisone at the same time. She can resume Aleve around the clock for a couple of days after completing the prednisone course, if needed. - Strict return precautions were given: she must go to the ER immediately if she experiences any loss of bladder or bowel control. - The patient is advised to follow up with her primary care physician, Dr. Aburto, or return to urgent care if her symptoms do not improve. Patient was informed and verbally consented to the use of an ambient scribe for clinic note documentation during this visit. Medications: New prednisone On days 1-3, take 3 tablets with breakfast, on days 4-6 take 2 tablets with breakfast, on days 7-10 take 1 tablet with breakfast 20 mg PO daily 19 tabs 0RF cyclobenzaprine 5 mg PO Q8H PRN 20 tabs 0RF Muscle Spasm Coding Level of Care Code Est Pt Level 3 (62434) Diagnoses Acute bilateral low back pain with bilateral sciatica M54.42; M54.41 Sciatica laterality: bilateral sciatica
== END 2025-03-13 13:52 | disposition home or self-care (01) ==
PROVIDERS: PCP Internal Medicine; Visit Provider Physician Assistant
DX: M54.42 Lumbago with sciatica, left side (principal); M54.41 Lumbago with sciatica, right side